=== PATIENT | female | born 1985 | race Caucasian/White ===

== ENCOUNTER 2021-04-10 17:00 | Emergency (ER) | payer OTHER, SELFPAY ==
[2021-04-10 17:27] VITALS: BP 144/66; PULSE 95; RESP 18; TEMP 35.9; O2SAT 100; BMI 27.4
--- NOTE | 2021-04-10 18:18 | ED_ITS ---
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 The patient does feel like she has numbness to her left middle finger and feels like finger is weak. She believes her last tetanus immunization was about 3 years ago she was . Pain is mild, worsened with finger movement, sharp Related Data Allergies Allergy/AdvReac Type Severity Reaction Status Date / Time latex [LATEX] Allergy Unknown BLEEDIGN Verified 04/10/21 18:24 SKIN latex Allergy Unknown Unknown Uncoded 04/10/21 18:24 Review of Systems Integumentary/Breasts: Comments: Lacerations left middle and ring finger Neurologic: Reports paresthesias PMFSH Social History Social History Advance Directives: No Advance Directives Information Provided: No Patient : No Physical Exam Vital Signs: Vital Signs: Last Vital Signs Temp 96.7 F L 04/10/21 17:27 Pulse 95 04/10/21 17:27 Resp 18 04/10/21 17:27 BP 144/66 H 04/10/21 17:27 Pulse Ox 100 04/10/21 17:27 Body Mass Index 27.4 Const: General: healthy appearing Orientation/consciousness: patient oriented x3 Eyes: General: appearance normal, both eyes and all related structures Resp: Effort & Inspection: normal respiratory effort Skin: Trauma: laceration (2 cm left proximal volar middle finger into subcutaneous fat, no visible ) and other (No visible tendon injury. Left ring finger with 1 cm more superficial lac) Neuro: General: patient oriented x3 Sensory Exam: other (Subjectively decreased sensation to light touch distal left middle finger) Procedures Laceration Laceration 1: Site: hand Side (If applicable): left Size (cm): 2 Description: linear Depth: simple, single layer Local Anesthetic: lidocaine 1% and with epi Amount of anesthesia used (mL): 2 Pre-repair: wound explored, irrigated extensively and deep structures intact Skin layer closed with: nylon Size (cm): 5-0 Number of sutures: 4 Technique: simple, interrupted Technique: simple interrupted Laceration 2: Site: hand Side (If applicable): left Size (cm): 1 Description: linear Depth: simple, single layer Local Anesthetic: lidocaine 1% and with epi Amount of anesthesia used (mL): 1 Pre-repair: wound explored, irrigated extensively and deep structures intact Skin layer closed with: nylon Size (cm): 5-0 Number of sutures: 2 Technique: simple, interrupted MDM - Wound/Laceration MDM Narrative Medical decision making narrative: Linear lacerations from a patient financial representative's knife to the left middle and ring fingers. Deeper laceration of the middle finger was done and the subcutaneous fat but there is no evidence of tendon injury exam. Discharge Plan Discharge Clinical Impression: Laceration of finger of left hand Patient Disposition: Home, Self-Care Instructions: Finger Laceration (ED) Additional Instructions: 1. Please wash your laceration twice daily with soap and water then apply bacitracin or Neosporin, then apply clean bandage. 2. Keep the laceration site clean and dry and bandaged 3. Return to the emergency department any time if there are any signs of infection, worsening symptoms, or any concerns. 4. Tylenol or Motrin may be used for pain relief 5. Sutures should be removed in 10 days. Interventions: ED Discharge Assessment Last Done: 04/10/21 19:19 Discharge Date/Time: 04/10/21 19:23
[2021-04-10] MEDS: Lidocaine HCl 1% PF/Epi 1:200,000 30 ML VIAL 6 ML INFILTRATI (18:33)
== END 2021-04-10 19:23 | disposition home or self-care (01) ==
PROVIDERS: Emergency Provider Emergency Medicine
DX: S61.213A Laceration without foreign body of left middle finger without damage to nail, initial encounter (principal); S61.215A Laceration without foreign body of left ring finger without damage to nail, initial encounter; W26.0XXA Contact with knife, initial encounter; Y93.9 Activity, unspecified; Y92.9 Unspecified place or not applicable; Y99.9 Unspecified external cause status
CPT/HCPCS: 12002; 99283; 99284

== ENCOUNTER 2024-09-26 08:01 | Emergency (ER) | payer OTHER, SELFPAY ==
--- NOTE | ~2024-09-26 | XR_ITS ---
EXAMINATION: XR SHOULDER, RIGHT CLINICAL INFORMATION: pain COMPARISON: None available. TECHNIQUE: AP external rotation, Grashey, scapular Y views of the right shoulder. FINDINGS: The bones and soft tissues are normal. No fracture. Glenohumeral and acromioclavicular alignment is anatomic with normal joint space. No abnormal soft tissue calcifications. XR/XR shoulder RT min 2V IMPRESSION: Unremarkable plain radiographs of the right shoulder. Electronically signed by: Adriano Silverio MD 09/26/2024 08:28 AM [facility]
--- NOTE | ~2024-09-26 | XR_ITS ---
EXAMINATION: XR CERVICAL SPINE CLINICAL INFORMATION: pain COMPARISON: None available. TECHNIQUE: 3 views of the cervical spine were obtained. FINDINGS: Minimal right convex scoliosis, possibly positional. Straightening of the normal lordosis, nonspecific. Moderate degenerative disc changes present C4-5, C5-6, and C6-7. Normal facet alignment. No significant facet arthropathy or degeneration. No compression fractures, suspicious bone lesions, or subluxations are identified. C1-C2 articulation and craniocervical junction are intact and aligned. The prevertebral soft tissues are normal. XR/XR cervical spine 3V IMPRESSION: 1. No acute finding cervical spine. 2. Degenerative disc changes C4-C7. Electronically signed by: Norm Weaver MD 09/26/2024 09:45 AM [facility]
--- NOTE | ~2024-09-26 | XR_ITS ---
EXAMINATION: XR CHEST CLINICAL INFORMATION: cough COMPARISON: None available. TECHNIQUE: 2 views of the chest were obtained. FINDINGS: The cardiac, hilar, and mediastinal contours are normal. The lungs are clear bilaterally. There is no pneumothorax or pleural effusion. There is no focal osseous or soft tissue abnormality. XR/XR chest 2V IMPRESSION: Normal chest. Electronically signed by: Norm Weaver MD 09/26/2024 09:21 AM [facility]
[2024-09-26 08:08] VITALS: BP 155/88; PULSE 86; RESP 16; TEMP 37; O2SAT 100; BMI 39.5
--- NOTE | 2024-09-26 08:53 | ED_ITS ---
HPI - Extremity Problem General Chief complaint: Extremity Injury, Upper Stated complaint: r shoulder pain Time Seen by Provider: 09/26/24 08:51 Source: patient and RN notes reviewed Mode of arrival: ambulatory Limitations: no limitations History of Present Illness ED Provider: Dixie Mendoza PA-C HPI Narrative: This is a 38-year-old female, with a history of hypertension, who presents emergency department with complaints of right arm pain. Patient states that she has had is ongoing pain that starts in her right shoulder and radiates down into her hand for the last week. She denies any recent trauma or injury. She does report that she performs repetitious movements at work however does not remember a specific movement that caused her to have this pain. Denies history of similar symptoms in the past. Patient states that over the last week she has felt more fatigued. She states that she has not been sleeping well. She also states that she has had an ongoing cough. She denies any fevers, chills, chest pain, shortness of breath, abdominal pain, nausea, vomiting or diarrhea. She had a tubal ligation. She has been taking [id number] NSAIDs, and using Lidoderm patches which has provided her with minimal relief. No other complaints or concerns at this time. MD Complaint: extremity pain and joint pain Onset (ago): day(s) Pain Consistency: constant Location: right and upper extremity Quality: aching Radiation: distal Relieving factors: immobilization Exacerbating factors: range of motion Associated symptoms: denies other symptoms Related Data Previous Rx's ?Medication ?Instructions ?Recorded acetaminophen 500 mg tablet 500 - 1,000 mg (1 - 2 x 500 mg) PO 09/26/24 (Tylenol Extra Strength) QID PRN pain #30 tabs cyclobenzaprine 10 mg tablet 10 mg PO TID PRN muscle spasm #12 09/26/24 tabs ibuprofen 600 mg tablet 600 mg PO Q6H PRN pain #30 tabs 09/26/24 lidocaine 5 % topical patch 1 patch topical DAILY #30 ea 09/26/24 (Lidoderm) prednisone 20 mg tablet 40 mg (2 x 20 mg) PO DAILY 5 days 09/26/24 #10 tabs Allergies Allergy/AdvReac Type Severity Reaction Status Date / Time latex [LATEX] Allergy Unknown BLEEDIGN Verified 09/26/24 08:10 SKIN latex Allergy Unknown Unknown Uncoded 04/10/21 18:24 Review of Systems 2 Review of Systems: Yes all other systems are reviewed and are negative Constitutional: Constitutional: Reports as per HPI Physical Exam 2 Vital Signs: Vital Signs: Last Vital Signs Temp 98.6 F 09/26/24 13:26 Pulse 86 09/26/24 13:26 Resp 16 09/26/24 13:26 BP 155/88 H 09/26/24 13:26 Pulse Ox 100 09/26/24 13:26 O2 Del Method Room Air 09/26/24 13:26 BMI result Body Mass Index 39.5 Const: General: cooperative, comfortable and no acute distress O rientation/consciousness: patient oriented x3 Limitations: no limitations HEENT: Head: Yes normal to inspection, Yes normocephalic and Yes atraumatic Ears: hearing grossly normal bilaterally General nose exam: Normal external nose present Face and sinus: Yes normal facial exam Mouth: Normal oral and palatal mucosa present, oropharynx normal and moist mucous membranes Throat: Yes posterior oropharynx normal Eyes: General: appearance normal, both eyes and all related structures E yelids: Yes eyelids normal Conjunctivae: conjunctivae normal Sclerae: s clerae normal Pupils: Equal, round and reactive pupils present EOM: EOMs intact bilaterally Neck: Other: No midline spine tenderness. She does have tenderness palpation along the right trapezius muscle spasm noted Neck: Yes normal visual inspection, Yes full ROM and Yes no lymphadenopathy Lymphatic: no lymphadenopathy noted Chest: Chest palpation & inspection: normal inspection of the chest Resp: Effort & Inspection: normal respiratory effort and able to speak in complete sentences Auscultation: clear to auscultation bilaterally, no crackles, no rales, no rhonchi and no wheezes Cardio: Rate: regular rate Rhythm: regular rhythm Heart sounds: S1 normal heart sound present and S2 normal heart sound present GI: Inspection: Yes normal to inspection Skin: General skin exam: no rashes or lesions noted Trauma: no lacerations or abrasions Wounds: no wounds Neuro: General: patient oriented x3 and moves all extremities Cranial nerves: Yes Equal, round and reactive pupils present Extrem: Other: Patient has tenderness palpation along the AC joint, pain with forward flexion, and lateral raise. Negative empty can test. Negative drop-arm test. No pitting edema noted bilaterally. No calf tenderness. Strong DP pulse. General: Yes normal to inspection Right upper extremity: normal to inspection Left upper extremity: normal to inspection Right lower extremity: normal to inspection Left lower extremity: normal to inspection Course Reevaluation(s) Reevaluation #1: Cervical spine x-ray revealing degenerative disc disease at C4 through C7, chest x-ray, and shoulder x-ray unremarkable. Labs revealing slight leukocytosis at 11.4, chemistry within normal limits. Troponin less than 2.7. Viral swabs negative. EKG normal sinus rhythm with no ST elevation or depression. Discussed overall workup today. Patient's symptoms consistent with cervical radiculopathy and right shoulder pain. Will treat with muscle relaxants, prednisone, ibuprofen and Tylenol. Given strict return precautions. Patient stable for discharge. BNP pending and will not return for over 24 hours due to Down analyzer. She has no pitting edema noted, no calf tenderness. Suspicion for elevated BNP is unlikely, we will call if this is abnormal.Stable for d/c, Time: 12:52 Medications Administered Discontinued Medications Generic Name Dose Route Start Last Admin Trade Name Freq PRN Reason Stop Dose Admin Ketorolac Tromethamine 30 mg 09/26/24 09:29 09/26/24 09:41 Ketorolac Tromethamine 30 Mg/Ml Vial IM 09/26/24 09:30 30 mg ONCE ONE Administration Medical Decision Making Medical Decision Making [facility] Narrative: This is a 38-year-old female, with a history of hypertension, who presents emergency department with complaints of right shoulder pain x1 week. No recent trauma or injury. On arrival, vital signs revealing slight hypertension at 155/88, all other vital signs within normal limits. Pain worsens with range of motion, she has tenderness palpation along the right AC joint. She also reports that over the last week she has felt more fatigued. She does report she has not been sitting while due to the pain. This is likely the source however given recent cough, will obtain labs, EKG, viral swabs. Plan: Labs, EKG, viral swabs, x-ray Differential Diagnosis Differential Diagnoses: The differential diagnosis associated with the presentation includes Viral URI, radiculopathy, tendonitis, adhesive capsulitis, hypothyroidism, ACS- unlikely Lab Data [facility] Lab Attestation statement: I reviewed the patient's lab results. See course comment 09/26/24 09:46 09/26/24 09:46 Labs: Lab Results 09/26/24 09/26/24 Range/Units 09:46 09:47 WBC 11.4 H (4.8-10.8) X10*3/uL RBC 4.26 (4.20-5.50) X10*6/uL Hgb 12.8 (12.0-16.0) g/dl Hct 38.4 (37.0-47.0) % MCV 90.1 (80.0-98.0) fL MCH 30.0 (27.0-33.0) pg MCHC 33.3 (31.0-35.0) g/dl RDW 12.9 (11.0-16.0) % Plt Count 306 (160-400) X10*3/uL MPV 10.0 (9.4-12.3) fL Immature Gran % (Auto) 1.2 H (0.0-0.4) % Neut % (Auto) 69.0 (45-73) % Lymph % (Auto) 22.4 (20-40) % [place] % (Auto) 5.2 (2-11) % Eos % (Auto) 1.1 (0-4) % Baso % (Auto) 1.1 (0-2) % Lymph # (Auto) 2.5 (1.2-4.9) X10*3/uL [place] # (Auto) 0.6 (0.1-1.2) X10*3/uL Eos # (Auto) 0.1 (0.0-0.4) X10*3/uL Baso # (Auto) 0.1 (0.0-0.2) X10*3/uL Abs Immat Gran (auto) 0.14 H (0.00-0.03) X10*3/uL Absolute Neuts (auto) 7.9 (2.0-8.3) x10*3/uL Absolute Nucleated RBC 0.000 (0.0-0.012) X10*3/uL Nucleated RBC % (auto) 0.0 (0.0-0.2) /100WBC Sodium 139 (135-145) mmol/L Potassium 4.0 (3.3-5.1) mmol/L Chloride 110 H (96-108) mmol/L Carbon Dioxide 24 (22-29) mmol/L Anion Gap 9 L (12-20) BUN 11 (9-16) mg/dL Creatinine 0.77 (0.5-1.4) mg/dL Estim Creat Clear Calc 115.3 Estimated GFR > 60 Random Glucose 93 (60-115) mg/dL Calcium 9.0 (8.4-10.2) mg/dL Magnesium 2.1 (1.6-2.6) mg/dL Total Bilirubin 0.1 (0.0-1.0) mg/dL Direct Bilirubin < 0.2 (0.0-0.5) mg/dL AST 29 (5-31) U/L ALT 36 H (0-31) U/L Alkaline Phosphatase 80 (39-117) U/L Troponin I High Sens < 2.7 (<3.5-17.0) ng/L B-Natriuretic Peptide < 10 (<100) pg/mL Total Protein 6.7 (6.5-8.0) g/dL Albumin 4.0 (3.5-5.0) g/dL TSH 1.20 (0.32-4.0) uIU/mL Influenza Type A (PCR) NEGATIVE (Negative) Influenza Type B (PCR) NEGATIVE (Negative) RSV RNA Qual (PCR) NEGATIVE (Negative) SARS-CoV-2 RNA (RT-PCR) NEGATIVE (Negative) Independent Interpretation I performed an independent interpretation of an: EKG Interpretation: EKG normal sinus rhythm with sinus arrhythmia, ventricular rate of 61 beats per minute, VA interval 132, QT QTC 408/410, no ST elevation or depression. Radiology Impression Discussion of test interpretation with radiology: I have reviewed the radiologist's reading. Radiologist Impression: XR/XR cervical spine 3V IMPRESSION: 1. No acute finding cervical spine. 2. Degenerative disc changes C4-C7. Electronically signed by: Norm Weaver MD 09/26/2024 09:45 AM EST Dictated By: Norm Weaver MD Signed By: <Electronically signed [address] [id number] XRay Report Signed Patient: Salomon Golden MR#: [id number] : 1985 Acct:[id number] Age/Sex: 38 / F ADM Date: 09/26/24 Loc: HO.ED Attending Dr: Ordering Physician: Dixie Mendoza Date of Service: 09/26/24 Procedure(s): XR chest 2V Accession Number(s): [id number] cc: Dixie Mendoza; Physician,None ~ EXAMINATION: XR CHEST CLINICAL INFORMATION: cough COMPARISON: None available. TECHNIQUE: 2 views of the chest were obtained. FINDINGS: The cardiac, hilar, and mediastinal contours are normal. The lungs are clear bilaterally. There is no pneumothorax or pleural effusion. There is no focal osseous or soft tissue abnormality. XR/XR chest 2V IMPRESSION: Normal chest. Electronically signed by: Norm Weaver MD 09/26/2024 09:21 AM EST RP Dictated By: Norm Weaver MD XR/XR shoulder RT min 2V IMPRESSION: Unremarkable plain radiographs of the right shoulder. Electronically signed by: Adriano Silverio MD 09/26/2024 08:28 AM EST RP Dictated By: Adriano Silverio MD Discharge Plan Discharge Clinical Impression: Cervical radiculopathy, Shoulder pain, right Patient Disposition: Home, Self-Care Instructions: Cervical Radiculopathy (ED), Arm Pain (ED), Neck Pain (ED) Additional Instructions: You were seen in the emergency department due to neck pain, and right shoulder pain. Your x-ray of your C-spine show degenerative changes at your C4 through C7 level. Your shoulder x-ray was normal. Your chest x-ray was normal. Your blood work was reassuring. A test called a BNP is still pending, we will call you if this is abnormal. Please take prescribed medication as directed. Alternate between ibuprofen and Tylenol as needed for pain. Prednisone is a steroid, this will help decrease inflammation and can help with this pain. Flexeril as a muscle relaxants, take as prescribed, please be advised that this can cause drowsiness, do not drink alcohol or drive while taking this medication. Ice and heat can also help. Lidoderm patches can also help. Do not directly apply heat or ice to the lidocaine patches as this can cause ashby. Gentle stretching, massage can also help. 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 Follow-up with a primary care physician. If any new or worsening symptoms occur including but not limited to severe chest pain, shortness of breath, please seek emergent care. Prescriptions: New ibuprofen 600 mg tablet 600 mg PO Q6H PRN (Reason: pain) Qty: 30 0RF prednisone 20 mg tablet 40 mg PO DAILY 5 Days Qty: 10 0RF cyclobenzaprine 10 mg tablet 10 mg PO TID PRN (Reason: muscle spasm) Qty: 12 0RF lidocaine [Lidoderm] 5 % adhesive patch,medicated 1 patch topical DAILY Qty: 30 0RF Rx Instructions: leave on most painful area for up to 12 hrs acetaminophen [Tylenol Extra Strength] 500 mg tablet 500 - 1,000 mg PO QID PRN (Reason: pain) Qty: 30 0RF [place] [facility] [place] [facility] [place] Group] Interventions: ED Discharge Assessment Last Done: 09/26/24 13:26 Discharge Date/Time: 09/26/24 13:27 Print Language: Uzbek
--- NOTE | 2024-09-26 09:12 | ECG_ITS ---
Test Reason : fatigue Blood Pressure : / mmHG Vent. Rate : 066 BPM Atrial Rate : 000 BPM P-R Int : 000 ms QRS Dur : 084 ms QT Int : 400 ms P-R-T Axes : 000 015 019 degrees QTc Int : 419 ms Accelerated Junctional rhythm Cannot rule out Anterior infarct , age undetermined Abnormal ECG No previous ECGs available Referred By: Dixie Mendoza Electronically Signed By:Porter Coon
[2024-09-26] MEDS: Ketorolac Tromethamine 30 MG/ML VIAL IM (09:41)
[2024-09-26 09:53] LABS: MANUAL DIFF FLAG NO
[2024-09-26 10:07] LABS: Basophils Absolute Auto 0.1 X10*3/uL (0.0-0.2); Basophils Percent Auto 1.1 % (0-2); Eosinophils Absolute Auto 0.1 X10*3/uL (0.0-0.4); Eosinophils Percent Auto 1.1 % (0-4); Hematocrit 38.4 % (37.0-47.0); Hemoglobin 12.8 g/dl (12.0-16.0); Imm Gran Abs Auto 0.14 X10*3/uL (0.00-0.03); Imm Gran Pct Auto 1.2 % (0.0-0.4); Lymphocytes Absolute Auto 2.5 X10*3/uL (1.2-4.9); Lymphocytes Percent Auto 22.4 % (20-40); Mean Corpuscular HGB Conc 33.3 g/dl (31.0-35.0); Mean Corpuscular Volume 90.1 fL (80.0-98.0); Monocytes Absolute Auto 0.6 X10*3/uL (0.1-1.2); Monocytes Percent Auto 5.2 % (2-11); Neutrophils Absolute Auto 7.9 x10*3/uL (2.0-8.3); Platelet Count 306 X10*3/uL (160-400); Red Blood Count 4.26 X10*6/uL (4.20-5.50); Red Cell Distribution Width 12.9 % (11.0-16.0); White Blood Count 11.4 X10*3/uL (4.8-10.8)
--- NOTE | 2024-09-26 10:08 | ECG_ITS ---
Test Reason : fatigue repeat Blood Pressure : / mmHG Vent. Rate : 061 BPM Atrial Rate : 061 BPM P-R Int : 132 ms QRS Dur : 082 ms QT Int : 408 ms P-R-T Axes : 038 017 020 degrees QTc Int : 410 ms Normal sinus rhythm with sinus arrhythmia Cannot rule out Anterior infarct (cited on or before 26-SEP-2024) Abnormal ECG When compared with ECG of 26-SEP-2024 10:03, Sinus rhythm has replaced Junctional rhythm Referred By: Dixie Mendoza Electronically Signed By:Porter Coon
[2024-09-26 10:37] LABS: Alanine Aminotransferase 36 U/L (0-31); Alkaline Phosphatase 80 U/L (39-117); Anion Gap 9 (12-20); Aspartate Amino Transferase 29 U/L (5-31); Bilirubin Direct < 0.2 mg/dL (0.0-0.5); Bilirubin Total 0.1 mg/dL (0.0-1.0); Blood Urea Nitrogen 11 mg/dL (9-16); Carbon Dioxide 24 mmol/L (22-29); Chloride 110 mmol/L (96-108); Creatinine Clr Calc Pharmacy 115.3; Estimated Glomerular Filt Rate > 60; Glucose Random 93 mg/dL (60-115); Magnesium 2.1 mg/dL (1.6-2.6); Sodium 139 mmol/L (135-145); Total Protein 6.7 g/dL (6.5-8.0)
[2024-09-26 10:37] LABS: Troponin-I High Sensitivity < 2.7 ng/L (<3.5-17.0)
[2024-09-26 10:52] LABS: Influenza A PCR NEGATIVE (Negative); Influenza B PCR NEGATIVE (Negative); Resp Syncy Virus RNA Qual PCR NEGATIVE (Negative); SARS COV2 PCR INHOUSE NEGATIVE (Negative)
[2024-09-26 13:26] VITALS: BP 155/88; PULSE 86; RESP 16; TEMP 37; O2SAT 100
[2024-09-26 18:29] LABS: B Type Natriuretic Peptide < 10 pg/mL (<100)
== END 2024-09-26 13:27 | disposition home or self-care (01) ==
PROVIDERS: Physician Assistant Medical; Emergency Provider Emergency Medicine
DX: M54.12 Radiculopathy, cervical region (principal); M25.511 Pain in right shoulder; R05.9 Cough, unspecified; Z03.818 Encounter for observation for suspected exposure to other biological agents ruled out; I10 Essential (primary) hypertension; Z79.899 Other long term (current) drug therapy
CPT/HCPCS: 0241U; 36415; 71046; 72040; 73030; 80048; 80076; 83735; 83880; 84443; 84484; 85025; 93005; 96372; 99284; J1885

== ENCOUNTER → 2024-09-26 09:12 | Outpatient (BNV) | payer OTHER, SELFPAY | PROVIDERS: Emergency Provider Emergency Medicine; Visit Provider Internal Medicine Cardiovascular Disease | DX: R94.31 Abnormal electrocardiogram [ECG] [EKG] (principal) | CPT/HCPCS: 93010 ==

== ENCOUNTER → 2024-09-26 09:13 | Outpatient (BNV) | payer OTHER, SELFPAY | PROVIDERS: Emergency Provider Emergency Medicine; Visit Provider Radiology Diagnostic Radiology | DX: R05.9 Cough, unspecified (principal); M50.321 Other cervical disc degeneration at C4-C5 level; M50.322 Other cervical disc degeneration at C5-C6 level; M50.323 Other cervical disc degeneration at C6-C7 level | CPT/HCPCS: 71046; 72040 ==

== ENCOUNTER 2024-10-28 09:57 | Outpatient (AMB) | payer OTHER, SELFPAY ==
--- NOTE | 2024-10-28 10:02 | A.OFFVIS_ITS ---
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 She was seen at [facility] on 09/26/24 and an x-ray was performed. Patient reports her pain presented a week prior to her ER visit. States feels like she pinched a nerve, her pain is travels into her armpit and down the medial aspect of arm. Her pain is constant and fluctuates in intensity. She has limited ROM. Numbness and tingling in her fingers. Finds no relief with ibuprofen and Tylenol, and very little relief with lidocaine patch. No previous tx. 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 She states it started off as pain in her neck but eventually it has started to go into the shoulder and around the right arm down to the elbow. She also has numbness down into the fingers. She states the N/T has been presents since before [place]. She does recall any incident that caused the pain. She does have discomfort with driving. She states sleeping at night is uncomfortable. She denies treatment to date. [facility] Surgical History (Updated 10/28/24 @ 10:09 by SHERIE Cali) Hx of knee surgery Hx of section Review of Systems Const All systems reviewed & are unremarkable except as noted in HPI and below Physical Exam Vital Signs: BMI result Body Mass Index 39.3 Const General: cooperative and no acute distress Orientation/consciousness: patient oriented x3 Resp Effort & Inspection: normal respiratory effort and able to speak in complete sentences Cardio Peripheral pulses: Peripheral pulses 2+ throughout Neuro General: patient oriented x3 Extrem Other: Right shoulder normal to inspection. Tenderness in the trapezium down to the scapula. She also has tenderness over the bicipital groove and along deltoid region of the shoulder. FF to 175, ER to 90, IR to S1. 5/5 RTC strength, negative griffin, cross body abduction. Rt wrist and elbow normal to inspection. Mild Tenderness over the medial aspect of the elbow and Positive tinels along the cubital tunnel. She has good ROM of the elbow, no pain with supination or pronation. Negative tinels along the carpal tunnel. Numbness and tingling over the ulnar nerve distribution of the left hand. Able to make a full fist and fully extend all fingers. Results Reviewed Results Reviewed: XR shoulder RT min 2V 09/26/24 IMPRESSION: Unremarkable plain radiographs of the right shoulder. Assessment & Plan Assessment & Plan (1) Tendinitis of left rotator cuff: Code(s): M75.82 - Other shoulder lesions, left shoulder Category: Medical Plan: We discussed options today which included physical therapy to work on rotator cuff periscapular stabilization. I also ordered an EMG nerve conduction study given her numbness that radiates down arm. Once the scan is complete I reached out to her to discuss the next step her treatment. Orders: Orders PT Evaluation and Treatment Today M75.82 - Other shoulder lesions, left shoulder NE electromyogram (EMG) Today R20.0 - Anesthesia of skin, R20.2 - Paresthesia of skin NE nerve conduction velocity Today R20.0 - Anesthesia of skin, R20.2 - Paresthesia of skin Medications: Discontinued prednisone Discontinued Reason: Patient no longer taking 40 mg (2 x 20 mg) PO DAILY 5 days 10 tabs 0RF cyclobenzaprine Discontinued Reason: Patient no longer taking 10 mg PO TID PRN 12 tabs 0RF muscle spasm Coding Level of Care Code New Pt Level 3 (23603) Complex EM visit Add On G2211 Diagnoses Tendinitis of left rotator cuff M75.82
[2024-10-28 10:10] VITALS: BMI 39.3
== END 2024-10-28 11:30 | disposition home or self-care (01) ==
PROVIDERS: Visit Provider Physician Assistant
DX: M75.82 Other shoulder lesions, left shoulder (principal)
CPT/HCPCS: 99203; G2211

== ENCOUNTER → 2024-10-28 09:57 | Outpatient (BNVA) | payer OTHER, SELFPAY | PROVIDERS: Visit Provider Physician Assistant | DX: M75.82 Other shoulder lesions, left shoulder (principal); M25.511 Pain in right shoulder; M54.2 Cervicalgia; R20.0 Anesthesia of skin; R20.2 Paresthesia of skin | CPT/HCPCS: 99202 ==